=== PATIENT | male | born 1940 | race Hispanic/Latino ===

== ENCOUNTER 2020-12-16 22:04 | Emergency (ER) | payer MEDICARE ==
--- NOTE | 2020-12-17 00:23 | Emergency Department Report ---
ED General Adult HPI - General Chief complaint: Nosebleed Stated complaint: SEVERE NOSE BLEED Time Seen by Provider: 12/17/20 00:15 Source: patient Mode of arrival: Ambulatory Limitations: No Limitations - History of Present Illness Initial comments: Patient is 80 years old male with history of diabetes. Patient brought to the emergency room via EMS for evaluation of epistaxis that started tonight. Patient stated that he fell 2 days ago and hit his nose but the bleeding stopped immediately however he restarted bleeding again. Patient denied any other injuries. Patient stated that he is taking baby aspirin daily. Patient denied any headache or any other active bleeding. - Related Data Previous Rx's Medication Instructions Recorded Last Taken Type Amoxicillin [Amoxicillin TAB] 875 mg PO BID #14 tablet 12/17/20 Unknown Rx Allergies Allergy/AdvReac Type Severity Reaction Status Date / Time No Known Allergies Allergy Unverified 12/16/20 23:30 ED Review of Systems ROS: Stated complaint: SEVERE NOSE BLEED Other details as noted in HPI Comment: All other systems reviewed and negative Constitutional: denies: chills, fever ENT: epistaxis Respiratory: denies: cough, shortness of breath, SOB with exertion Cardiovascular: denies: chest pain, palpitations Gastrointestinal: denies: abdominal pain, nausea, vomiting Musculoskeletal: denies: back pain Neurological: denies: headache, weakness, numbness, paresthesias, confusion ED Past Medical Hx - Past Medical History Previous Medical History?: Yes Hx Diabetes: Yes - Surgical History Past Surgical History?: No - Social History Smoking Status: Never Smoker Substance Use Type: None - Medications Home Medications: Home Medications Medication Instructions Recorded Confirmed Last Taken Type Amoxicillin [Amoxicillin TAB] 875 mg PO BID #14 tablet 12/17/20 Unknown Rx ED Physical Exam - General Limitations: No Limitations General appearance: alert, in no apparent distress - Head Head exam: Present: atraumatic, normocephalic, normal inspection - Eye Eye exam: Present: normal appearance, PERRL - ENT ENT exam: Present: other (Active bleeding from the right nostril.) - Neck Neck exam: Present: normal inspection, full ROM. Absent: tenderness, meningismus - Respiratory Respiratory exam: Present: normal lung sounds bilaterally - Cardiovascular Cardiovascular Exam: Present: regular rate, normal rhythm, normal heart sounds - GI/Abdominal GI/Abdominal exam: Present: soft, normal bowel sounds. Absent: distended, tenderness, guarding, rebound, rigid, organomegaly, mass, bruit, pulsatile mass, hernia - Extremities Exam Extremities exam: Present: normal inspection, full ROM, normal capillary refill - Back Exam Back exam: Present: normal inspection, full ROM. Absent: CVA tenderness (R) - Neurological Exam Neurological exam: Present: alert, oriented X3, CN II-XII intact, normal gait, reflexes normal - Skin Skin exam: Present: warm, intact, normal color ED Course Vital Signs 12/16/20 12/16/20 12/17/20 23:25 23:40 00:11 Temperature 97.5 F L Pulse Rate 111 H Respiratory 18 Rate Blood Pressure Blood Pressure 131/64 [Left] O2 Sat by Pulse 98 100 Oximetry 12/17/20 12/17/20 00:15 00:30 Temperature Pulse Rate Respiratory Rate Blood Pressure 138/66 102/76 Blood Pressure [Left] O2 Sat by Pulse 97 99 Oximetry - Procedure Description Procedures done: Rapid Rhino applied to the right nostril. Bleeding immediately stopped. No complication. ED Medical Decision Making - Lab Data Result diagrams: 12/17/20 00:06 12/17/20 00:06 - Radiology Data Radiology results: report reviewed Critical Care Time: Yes Critical care time in (mins) excluding proc time.: 30 Critical care attestation.: If time is entered above; I have spent that time in minutes in the direct care of this critically ill patient, excluding procedure time. ED Disposition Clinical Impression: Acute anterior epistaxis Disposition: DC-01 TO HOME OR SELFCARE Is pt being admited?: No Condition: Stable Instructions: Nosebleed, Adult Prescriptions: Amoxicillin [Amoxicillin TAB] 875 mg PO BID #14 tablet Referrals: PRIMARY CARE, [Referring] - 3-5 Days
[2020-12-17 01:00] LABS: Basophils # (Auto) 0.1 K/mm3 (0.0-0.1); Basophils % (Auto) 0.7 % (0.0-1.8); Eosinophils # (Auto) 0.1 K/mm3 (0.0-0.4); Eosinophils % (Auto) 0.6 % (0.0-4.3); Hematocrit 41.6 % (35.5-45.6); Hemoglobin 13.8 gm/dl (11.8-15.2); Lymphocytes # (Auto) 1.2 K/mm3 (1.2-5.4); Lymphocytes % (Auto) 9.9 % (13.4-35.0); Mean Corpuscular HGB Conc 33 % (32-34); Mean Corpuscular Volume 92 fl (84-94); Monocytes # (Auto) 0.7 K/mm3 (0.0-0.8); Monocytes % (Auto) 6.1 % (0.0-7.3); Platelet Count 185 K/mm3 (140-440); Red Blood Count 4.53 M/mm3 (3.65-5.03); Red Cell Distribution Width 15.1 % (13.2-15.2)
[2020-12-17 01:12] LABS: INR 1.04 (0.87-1.13)
[2020-12-17 01:13] LABS: Partial Thromboplastin Time 28.2 Sec. (24.2-36.6)
[2020-12-17 01:22] LABS: Alanine Aminotransferase 13 units/L (7-56); BUN/Creatinine Ratio 20; Bilirubin,Direct 0.2 mg/dL (0-0.2); Blood Urea Nitrogen 22 mg/dL (9-20); Calcium 9.2 mg/dL (8.4-10.2); Hemolysis Index 15
[2020-12-17] MEDS ORDERED: SODIUM CHLORIDE 0.9% 1000 ML 1,000 ML IV ONE (01:31)
[2020-12-17] MEDS ORDERED: INSULIN REGULAR, HUMAN 100 UNITS/1 ML IV ONE (01:31)
--- NOTE | 2020-12-17 01:37 | Cat Scan Report ---
CT facial bones wo con INDICATION: FALL, FASCIAL TRAUMA. TECHNIQUE: All CT scans at this location are performed using the following dose modulation technique: Automated exposure control. CONTRAST: None. COMPARISON: None available. FINDINGS: Moderate sinus air-fluid level at the right maxillary sinus and right ethmoid air cells. Fl uid/debris also fills the right nasal cavity. The septum is moderately deviated to the left. Evaluation of the bones demonstrates the floor of the orbits to be intact. 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 No definitive fracture is identified. IMPRESSION: 1. Air-fluid levels involving the right maxillary sinus and ethmoid air cells. 2. Fluid/debris distends the right nasal cavity. 3. Suspected previous at the maxillary sinuses bilaterally. 4. Leftward septal deviation. Signer Name: Guille Torres MD Signed: 12/17/2020 1:32 AM Workstation Name: [id number]
[2020-12-17 04:09] VITALS: BP 102/76
== END 2020-12-17 03:45 | disposition home or self-care (01) ==
LOC: ED 22:04
DX: R04.0 Epistaxis (principal); E11.9 Type 2 diabetes mellitus without complications; Z79.2 Long term (current) use of antibiotics
CPT/HCPCS: 30901; 36415; 70486; 80048; 80076; 85025; 85610; 85730; 96361; 96374; 99284; J7030; J1815